=== PATIENT | female | born 1980 | race Caucasian/White ===

== ENCOUNTER 2019-02-12 18:01 | Emergency (ER) | payer BC ==
[2019-02-12 18:48] LABS: Urine Blood NEGATIVE (NEG); Urine Glucose NEGATIVE (NEG); Urine Protein NEGATIVE (NEG)
[2019-02-12] MEDS ORDERED: LORazepam 2 MG/ML VIAL ONE (19:24)
[2019-02-12 19:25] LABS: Absolute Lymphocytes (CBC) 2.8 K/uL (0.7-4.9); Basophils % 0.8 % (0-1.3); Hematocrit 41.8 % (36.0-45.0); Lymphocytes % 34.1 % (15.3-44.8); MPV 7.6 fL (7.6-11.3); RBC Red Blood Cell Count 4.53 M/uL (3.86-4.86)
--- NOTE | 2019-02-12 19:42 | RAD REPORT ---
EXAM DESCRIPTION: David Single View02/12/2019 7:22 pm CLINICAL HISTORY: Chest pain COMPARISON: 2010 FINDINGS: The lungs appear clear of acute infiltrate. The heart is normal size IMPRESSION: No acute abnormalities displayed
[2019-02-12 19:50] LABS: Barbiturates NEGATIVE (NEGATIVE); Benzodiazepines NEGATIVE (NEGATIVE); Cocaine NEGATIVE (NEGATIVE); METHAMPHETAM NEGATIVE (NEGATIVE); Methadone NEGATIVE (NEGATIVE); Opiates NEGATIVE (NEGATIVE); Phencyclidine NEGATIVE (NEGATIVE); THC Cannibis NEGATIVE (NEGATIVE)
[2019-02-12 19:57] LABS: ALT/SGPT 30 U/L (12-78); AST/SGOT 34 U/L (15-37); Albumin 4.1 g/dL (3.4-5.0); Alkaline Phosphatase 72 U/L (45-117); BUN Blood Urea Nitrogen 17 mg/dL (7-18); Bicarbonate 25 mmol/L (21-32); Bilirubin Direct 0.2 mg/dL (0-0.2); Bilirubin Total 0.6 mg/dL (0.2-1.0); Glucose Level 98 mg/dL (74-106); Magnesium 1.8 mg/dL (1.8-2.4); Potassium 3.2 mmol/L (3.5-5.1); Protein, Total 7.9 g/dL (6.4-8.2); Sodium Level 138 mmol/L (136-145); Troponin (Emerg Dept Use Only) < 0.02 ng/mL (0.0-0.045)
[2019-02-12] MEDS ORDERED: POTASSIUM 25 MEQ EFFERV TAB ONE (20:51)
--- NOTE | 2019-02-12 20:57 | EDPHYS ---
Physician Documentation [facility] Name: Ksenia Blanco Age: 38 yrs Sex: Female : 1980 Arrival Date: 02/12/2019 Time: 18:04 Bed 7 Private MD: ED Physician Lucas Antoine HPI: 02/12 18:35 This 38 yrs old Female presents to ER via Ambulatory with complaints of Chest cp Tightness, Dizziness. 18:35 The patient presents with lightheadedness. cp 18:35 Onset: The symptoms/episode began/occurred today, at 14:00. cp 18:35 Context: occurred at home, just prior to the episode the patient experienced no cp apparent symptoms. Associated signs and symptoms: Pertinent positives: chest pressure, tingling in hands, Pertinent negatives: abdominal pain, blurred vision, diaphoresis, focal weakness, headache, palpitations, shortness of breath, syncope, vomiting. Severity of symptoms: in the emergency department the symptoms are unchanged despite home interventions, took anxiety medication w/o relief. Patient's baseline: Neuro: alert and fully oriented, Motor: no deficits, Ambulation: walks without assistance, Speech: normal. 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 - Social history:: Smoking status: unknown. - Ebola Screening: : No symptoms or risks identified at this time. ROS: 18:40 Constitutional: Negative for body aches, chills, fever, poor PO intake. cp 18:40 Eyes: Negative for injury, pain, redness, and discharge. cp 18:40 ENT: Negative for drainage from ear(s), ear pain, sore throat, difficulty swallowing, difficulty handling secretions. 18:40 Cardiovascular: Positive for chest pressure, Negative for edema, palpitations. 18:40 Respiratory: Negative for cough, shortness of breath, wheezing. 18:40 Abdomen/GI: Negative for abdominal pain, nausea, vomiting, and diarrhea, black/tarry stool, rectal bleeding. 18:40 Back: Negative for pain at rest, pain with movement. 18:40 : Negative for urinary symptoms. 18:40 Neuro: Positive for dizziness, tingling, Negative for altered mental status, numbness, weakness. 18:40 All other systems are negative. Exam: 18:30 ECG was reviewed by the Attending Physician. cp 18:45 Constitutional: The patient appears in no acute distress, alert, awake, cp non-diaphoretic, non-toxic, well developed, well nourished, anxious. 18:45 Head/Face: Normocephalic, atraumatic. Eyes: Pupils equal round and reactive to light, cp extra-ocular motions intact. Lids and lashes normal. Conjunctiva and sclera are non-icteric and not injected. Cornea within normal limits. Periorbital areas with no swelling, redness, or edema. ENT: Nares patent. No nasal discharge, no septal abnormalities noted. Tympanic membranes are normal and external auditory canals are clear. Oropharynx with no redness, swelling, or masses, exudates, or evidence of obstruction, uvula midline. Mucous membranes moist. Neck: Trachea midline, no thyromegaly or masses palpated, and no cervical lymphadenopathy. Supple, full range of motion without nuchal rigidity, or vertebral point tenderness. No Meningismus. Chest/axilla: Normal chest wall appearance and motion. Nontender with no deformity. No lesions are appreciated. Cardiovascular: Regular rate and rhythm with a normal S1 and S2. No gallops, murmurs, or rubs. Normal PMI, no JVD. No pulse deficits. Respiratory: Lungs have equal breath sounds bilaterally, clear to auscultation and percussion. No rales, rhonchi or wheezes noted. No increased work of breathing, no retractions or nasal flaring. Abdomen/GI: Soft, non-tender, with normal bowel sounds. No distension or tympany. No guarding or rebound. No evidence of tenderness throughout. Neuro: Awake and alert, GCS 15, oriented to person, place, time, and situation. Cranial nerves II-XII grossly intact. Motor strength 5/5 in all extremities. Sensory grossly intact. Cerebellar exam normal. Normal gait. Vital Signs: 18:07 BP 131 / 85; Pulse 98; Resp 16; Temp 97.6; Pulse Ox 98% on R/A; Weight 77.11 kg; Height la1 5 ft. 4 in. (162.56 cm); 19:44 BP 123 / 73; Pulse 93; Resp 19; Pulse Ox 98% ; Pain 4/10; ao 20:13 BP 110 / 72; Pulse 94; Resp 18; Pulse Ox 98% ; ao 21:19 BP 103 / 73; Pulse 92; Resp 16; Temp 97.6; Pulse Ox 98% on R/A; ak1 18:07 Body Mass Index 29.18 (77.11 kg, 162.56 cm) la1 MDM: 18:27 Patient medically screened. cp 19:00 Differential diagnosis: cardiac arrhythmia, generalized weakness, hyperventilation, cp hypovolemia, idiopathic dizziness, , vertigo, anxiety. 20:55 Data reviewed: vital signs, nurses notes, lab test result(s), EKG, radiologic studies, cp plain films. 20:55 Test interpretation: by ED physician or midlevel provider: ECG, plain radiologic cp studies. Counseling: I had a detailed discussion with the patient and/or guardian regarding: the historical points, exam findings, and any diagnostic results supporting the discharge/admit diagnosis, lab results, radiology results, to return to the emergency department if symptoms worsen or persist or if there are any questions or concerns that arise at home. ED course: VSS. Patient reports she is feeling better. Will discharge to home for continued monitoring. 02/12 18:43 Order name: Urine Dipstick--Ancillary (enter results); Complete Time: 20:44 mb4 02/12 18:43 Order name: Urine --Ancillary (enter results); Complete Time: 20:44 mb4 02/12 19:00 Order name: UDS; Complete Time: 20:44 cp 02/12 19:00 Order name: Basic Metabolic Panel; Complete Time: 20:44 cp 02/12 20:44 Interpretation: Normal except: K 3.2; GFR 63. cp 02/12 19:00 Order name: CBC with Diff; Complete Time: 20:44 cp 02/12 19:00 Order name: LFT's; Complete Time: 20:44 cp 02/12 18:24 Order name: EKG; Complete Time: 18:25 cp 02/12 18:24 Order name: EKG - Nurse/Tech; Complete Time: 18:27 cp 02/12 18:26 Order name: Urine Dipstick-Ancillary (obtain specimen); Complete Time: 18:37 cp 02/12 19:00 Order name: Magnesium; Complete Time: 20:44 cp 02/12 19:00 Order name: Troponin (emerg Dept Use Only); Complete Time: 20:44 cp 02/12 19:00 Order name: XRAY Chest (1 view); Complete Time: 20:44 cp 02/12 18:26 Order name: Urine Test (obtain specimen); Complete Time: 18:37 cp 02/12 19:00 Order name: Cardiac monitoring; Complete Time: 19:35 cp 02/12 19:00 Order name: IV Saline Lock; Complete Time: 19:35 cp 02/12 19:00 Order name: Labs collected and sent; Complete Time: 19:35 cp 02/12 19:00 Order name: O2 Per Protocol; Complete Time: 19:35 cp 02/12 19:00 Order name: O2 Sat Monitoring; Complete Time: 19:35 cp EC:30 Rate is 93 beats/min. Rhythm is regular. IA interval is normal. QRS interval is normal. cp QT interval is normal. T waves are Flattened in lead aVL. Interpreted by me. Reviewed by me. Administered Medications: 19:34 Drug: Ativan 0.5 mg Route: IVP; Site: right antecubital; ao 21:20 Follow up: Response: No adverse reaction ak1 20:50 Drug: Potassium Effervescent Tablet 50 mEq Route: PO; ao 21:20 Follow up: Response: No adverse reaction ak1 Disposition: 02/12/19 20:56 Discharged to Home. Impression: Hypokalemia. - Condition is Stable. - Discharge Instructions: Potassium Content of Foods, Hypokalemia. - Prescriptions for Potassium Chloride 20 meq Oral Packet - take 1 packet by ORAL route once daily for 5 days 1 packet in 6 (six) ounces of water or juice; Take after meal; 5 packet. - Medication Reconciliation Form, Thank You Letter, Antibiotic Education, Prescription Opioid Use form. - Follow up: Private Physician; When: 1 - 2 days; Reason: Worsening of condition. - Problem is new. - Symptoms have improved. Signatures: Dispatcher [employer] EDMS Josue Harris RN RN la1 Kimberly Oakley RN RN ak1 Jett Deng PA PA cp Ortiz, Alex RN RN ao Corrections: (The following items were deleted from the chart) 21:21 20:56 02/12/2019 20:56 Discharged to Home. Impression: Hypokalemia. Condition is ak1 Stable. Forms are Medication Reconciliation Form, Thank You Letter, Antibiotic Education, Prescription Opioid Use. Follow up: Private Physician; When: 1 - 2 days; Reason: Worsening of condition. Problem is new. Symptoms have improved. cp
--- NOTE | 2019-02-12 20:57 | ER ---
Nurse's Notes [facility] Name: Ksenia Blanco Age: 38 yrs Sex: Female : 1980 Arrival Date: 02/12/2019 Time: 18:04 Bed 7 Private MD: Diagnosis: Hypokalemia Presentation: 02/12 18:05 Presenting complaint: Patient states: At about 1400 I started to feel dizzy. I have la1 been feeling bad since then and I tried to take my anxiety medicine but its not helping. Transition of care: patient was not received from another setting of care. Onset of symptoms was February 12, 2019. Risk Assessment: Do you want to hurt yourself or someone else? Patient reports no desire to harm self or others. Initial Sepsis Screen: Does the patient meet any 2 criteria? No. Patient's initial sepsis screen is negative. Does the patient have a suspected source of infection? No. Patient's initial sepsis screen is negative. Care prior to arrival: None. 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 - Social history:: Smoking status: unknown. - Ebola Screening: : No symptoms or risks identified at this time. Screenin:38 Abuse screen: Denies threats or abuse. Denies injuries from another. Nutritional ao screening: No deficits noted. Tuberculosis screening: No symptoms or risk factors identified. Fall Risk None identified. Assessment: 19:15 General: Appears in no apparent distress. comfortable, Behavior is calm, cooperative, ao appropriate for age. Pain: Complains of pain in chest Pain radiates to left arm Pain currently is 2 out of 10 on a pain scale. Pain began 1 hour ago. Neuro: Level of Consciousness is awake, alert, obeys commands, Oriented to person, place, time, situation, Appropriate for age Moves all extremities. Full function Speech is normal, Facial symmetry appears normal. Cardiovascular: Heart tones S1 S2 Capillary refill < 3 seconds is sluggish Patient's skin is warm and dry. Respiratory: Airway is patent Respiratory effort is even, unlabored, Respiratory pattern is regular, symmetrical. GI: Abdomen is non-distended. : Urine is clear. EENT: No signs and/or symptoms were reported regarding the EENT system. Derm: No signs and/or symptoms reported regarding the dermatologic system. Musculoskeletal: Circulation, motion, and sensation intact. Range of motion: intact in all extremities. 20:16 Reassessment: Patient appears in no apparent distress at this time. Patient and/or ao family updated on plan of care and expected duration. Pain level reassessed. Patient resting in bed with no SS of distress. Vital Signs: 18:07 BP 131 / 85; Pulse 98; Resp 16; Temp 97.6; Pulse Ox 98% on R/A; Weight 77.11 kg; Height la1 5 ft. 4 in. (162.56 cm); 19:44 BP 123 / 73; Pulse 93; Resp 19; Pulse Ox 98% ; Pain 4/10; ao 20:13 BP 110 / 72; Pulse 94; Resp 18; Pulse Ox 98% ; ao 21:19 BP 103 / 73; Pulse 92; Resp 16; Temp 97.6; Pulse Ox 98% on R/A; ak1 18:07 Body Mass Index 29.18 (77.11 kg, 162.56 cm) la1 ED Course: 18:04 Patient arrived in ED. mr 18:07 Triage completed. la1 18:07 Arm band placed on right wrist. la1 18:24 Jett Deng PA is PHCP. cp 18:24 Lucas Antoine MD is Attending Physician. cp 18:36 Urine collected: clean catch specimen, clear, bart colored, EKG done, by ED staff, jb1 reviewed by Lucas Antoine MD. 19:25 Inserted saline lock: 20 gauge in right antecubital area, using aseptic technique. ao Blood collected. Patient maintains SpO2 saturation greater than 95% on room air. 19:29 XRAY Chest (1 view) In Process Unspecified. EDMS 19:34 Michael Kirby, RN is Primary Nurse. ao 19:38 Patient has correct armband on for positive identification. cardiac monitor on. Pulse ao ox on. NIBP on. 21:20 IV discontinued, intact, bleeding controlled, No redness/swelling at site. Pressure ak1 dressing applied. 21:20 No provider procedures requiring assistance completed. ak1 Administered Medications: 19:34 Drug: Ativan 0.5 mg Route: IVP; Site: right antecubital; ao 21:20 Follow up: Response: No adverse reaction ak1 20:50 Drug: Potassium Effervescent Tablet 50 mEq Route: PO; ao 21:20 Follow up: Response: No adverse reaction ak1 Outcome: 20:56 Discharge ordered by MD. cp 21:20 Discharged to home ambulatory, with family. ak1 21:20 Condition: improved 21:20 Discharge instructions given to patient, Instructed on discharge instructions, follow up and referral plans. no drinking with medication, no driving heavy equipment, medication usage, Demonstrated understanding of instructions, follow-up care, medications, Prescriptions given X 1. 21:21 Patient left the ED. ak1 Signatures: Dispatcher [employer] EDMS Martín Mosley Mary mr Attema, Lee, RN RN Bart Collins RN RN stacy1 Jett Deng PA PA cp Michael Kirby, RN RN ao
--- NOTE | 2019-02-13 13:51 | EKG ---
Test Date: 2019-02-12 Test Time: 18:21:32 [employer]: [place] MEASUREMENT RESULTS: Intervals: Rate: 93 [place]: 120 QRSD: 84 QT: 338 QTc: 420 [place]: P: 36 [place]: 120 QRS: 65 T: 68 INTERPRETIVE STATEMENTS: Normal sinus rhythm Normal ECG Compared to ECG 07/18/2017 04:53:03 No significant changes Electronically Signed On 02-13-19 13:47:38 CDT by Abel Stallings
== END 2019-02-12 21:21 | disposition home or self-care (01) ==
LOC: ER 18:01
DX: E87.6 Hypokalemia (principal); F41.9 Anxiety disorder, unspecified; I10 Essential (primary) hypertension
CPT/HCPCS: 36415; 71045; 80048; 80076; 80307; 81003; 81025; 83735; 84484; 85025; 93005

== ENCOUNTER 2022-12-10 22:57 | Emergency (ER) | payer OTHER ==
--- OUTSIDE RECORDS SUMMARY | 2022-12-10 23:00 | XMS REPORT | Continuity of Care Document ---
:[address] [facility] t Address [address] [place] [address] Care Team Providers Name Role Phone Cherelle Colón Attending Clinician Unavailable Kei Chacon Admitting Clinician Unavailable Payers Payer Name Policy Type Policy Number Effective Date Expiration Date S ource Problems This patient has no known problems. Allergies, Adverse Reactions, Alerts Allergy Allergy Status Severity Reaction(s) Onset Inactive Treating Comm ents Source Name Type Date Date Clinician No Known DA Active [facility] All[facility]ie 6-20 [facility] s 00:00: d 00 [facility] Medications This patient has no known medications. Procedures This patient has no known procedures. Encounters Start End Encounter Admission Attending Care Care Encounter Source Date/Time Date/Time Type Type Clinicians Facility Department ID 2020-09-22 Inpatient MARILU TayPM DAYS [id number] [facility] 11:00:00 Cherelle Day [facility] Results Test Description Test Time Test Comments Results Result Comments Source SURG 2020-09-27 15:32:00 Test Item Value Reference Range Interpretation Comme nts SURG RUN (test DATE: 09/27/20 [facility] Luis Barrientos [facility] - LAB PAGE 1 RUN TIME: 1533 Specimen Inquiry RUN USER: code = INTERFACE SURG) PATIE NT: ALEXA DIXON LOC: SULEMALa U #: [id number] AGE/SX: 40/F ROOM: RE09/23/20[facility] DR: Devonte Colón : 84 BED: DIS: STATUS: [facility] [place] TLOC: SPEC #: [id number] RECD: STATUS: ADELINA STILES #: [id number] GRIFFIN: 09/23/[address]: Cherelle Colón MD ENTERED: 09/24/20 SP TYPE: SURG OTHR DR: Kei Chacon Jr, MD, Alberto J MDORDERED: SURG PATH LVL 5 COPIES TO: Kei Chacon Jr, MD [address] [facility] [address] [facility] [address] Cherelle Colón MD [address] [facility] [address] [place] [address] Ozzy Donnelly MD [address] [facility] [place] [address] HISTOLOGY: TISS UE ID BLK PCS DAWNA LEV PROCEDURE DISPOSITION ____ ___ ___ ___ UTERUS, NOS A 1 2 PROCEDURES: SURG PATH LVL 5 (09/24/20-1041) TISSUES: A. UTERUS, NOS - UTERUS, BILATERAL FALLOPIAN TUBES AND CERVIX CPT CODES CPT CODE(S): 43826 , , , , , , FINAL DIAGNOSIS Uterus, bilateral fallopian tubes, cervix, hysterectomy with bilateral salpingectomy: CHRONIC CERVICITIS SECRETORY PHASE ENDOMETRIUM ADENOMYOSIS LEIOMYOMAS BILAT ERAL FALLOPIAN TUBES WITH PARATUBAL CYSTS CONTINUED ON NEXT PAGE RUN DATE: 09/27/[address] [facility] - LAB PAGE 2 RUN TIME: 1533 Specimen Inquiry RUN USER: INTERFACE SPEC #: [id number] PATIENT: ZACKALEXA LEE #[id number] (Continued) ------ GROSS DESCRIPTION [place] jaren, bilateral fallopian tubes, cervix. Received in formalin is a 95.3-gram hysterectomy and b ilateral salpingectomy specimen and include a uterus with attached cervix (9.4 x 4.7 x 3.7 cm, 90.5 gms), a detached longer segment of fallopian tube with fimbriated end (3.7 x 1.2 x 1.0 cm), and a shorter detached segment of fallopian tube (3.2 x 1.2 x 1.0 cm). The serosal surfa ce is ramos-brown, generally smooth and glistening. The cervix, 3.2 x 2.6 x 3.0 cm, has a ramos exoc ervix and a linear os, 0.8 cm. The endometrial cavity measures 1.0 cm from cornu to cornu by 4.5 c m in length with a hemorrhagic endometrium, 0.2 cm. The myometrium is maximally 2.0 cm in thicknes s, areas with coarse trabeculations, and small cyst-like spaces filled with hemorrhagic flui d. There is an intramural nodule, 1.4 cm in greatest dimension with a homogeneous, dense, ramos, fib valorie cut surface with the whorled appearance and without hemorrhage or necrosis. Within the myom etrium is a cyst-like space, 1.4 x 0.7 x 0.5 cm, filled with non-viscous fluid. The longe r segment of fallopian tube has a patent lumen and is grossly unremarkable. The shorter se gment of fallopian tube is slightly tortuous, has a patent lumen, and is grossly unremarkable exce pt for an adjacent paratubal cyst, 0.4 cm. Section code: A1 Anterior cervix A2 Posterior cervix A 3-A4 Anterior endometrium/myometrium A5-A6 Posterior endometrium/myometrium A7 In tramural nodule A8-A9 Thickened coarse myometrium A10-A12 Cyst-like space in myometrium A13 Sero sa (Cul-de-sac) A14 Entire fimbria, longer fallopian tube A15 Longer fallopian tube A16 Entire fi mbria, shorter fallopian tube A17 [place] fallopian tube paratubal cyst Grossing performed at [facility], [address] [place] [address], [address], [place], [place] [address]. Laser Technician: Zachery Emerson M.D. MICROSCOPIC DESCRIPTION Uterus, bilateral fallopian tubes, cervix. Sections demo nstrate squamous endocervix and glandular endocervix. Chronic cervicitis is identified. Se ctions of the endometrium demonstrates secretory phase endometrium. The myometrium demonstrates areas of spindle cell nodules with no malignant or atypical features. Areas of endometrial glands and stroma are also identified in the myometrium. Sections of the fallopian tube demonstrate f imbriated and and cross sections of fallopian tube. Paratubal cysts are identified. CONTINUED ON NEXT PAGE RUN DATE: 09/27/20 [facility] - LAB PAGE 3 RUN TIME: 1533 Specimen Inquiry RUN USER: INTERFACE SPEC #: [facility]:[id number] PATIENT: ALEXA DIXON JIAN #[id number] (Continued) ------ Signed SIGNATURE ON FILE Theo Russell 09/27/20 153 2 END OF REPORT COVID 19 INHOUSE [id number] 12:37:00 Test Item Value Reference Range Interpretation Comments COVID 19 INHOUSE AG NEGATIVE Negative Per [facility] facturer, (test code = negative result s should [id number]) be treated aspr esumptive and, if inconsi stent with clinical signs andsymptoms or necessary for patient man agement, should betested with an alternative mol ecular assay. Negative resultsdo not preclude SA RS-CoV-2 infection and s hould not be usedas the s ole basis for patient man agement decisions. Nega tive results should be considered in t he context of apatient's r ecent exposures, hist ory, presence of cli nicalsigns and symptoms co nsistent with COVID-19. URINALYSIS [id number] 12:37:00 Test Item Value Reference Range Interpretation Comments UA GLUCOSE DIPSTICK (test NEGATIVE mg/dL NEG code = DGLUU) UA BILIRUBIN DIPSTICK (test NEGATIVE mg/dL NEG code = BILU) UA KETONE DIPSTICK (test NEGATIVE mg/dL NEG code = KETU) UA SPECIFIC GRAVITY (test <=1.005 SG 1.005-1.030 code = SGU) UA BLOOD DIPSTICK (test 1+ mg/DL NEG A code = DANE) UA PH DIPSTICK (test code = 7.0 pH UNITS 5.0-7.0 [place]) UA PROTEIN DIPSTICK (test NEGATIVE mg/dL NEG code = PROU) UA UROBILINIOGEN DIPSTICK 0.2 mg/dL <2.0 (test code = URO) UA NITRITE DIPSTICK (test NEGATIVE SCREEN NEG code = TONIO) UA LEUKOCYTE ESTERASE NEGATIVE Leuk/mcL NEGATIVE DIPSTICK (test code = LEUU) Urine Specimen Type: Clean CatchUR HCG [id number] 12:37:00 Test Item Value Reference Range Interpretation Comments UR HCG QUAL (test code = HCGQLU) NEGATIVE NEGATIVE Urine Specimen Type: Clean CatchURINALYSIS [id number] 12:18:00 Test Item Value Reference Range Interpretation Comments UA GLUCOSE DIPSTICK (test NEGATIVE mg/dL NEG code = DGLUU) UA BILIRUBIN DIPSTICK (test NEGATIVE mg/dL NEG code = BILU) UA KETONE DIPSTICK (test NEGATIVE mg/dL NEG code = KETU) UA SPECIFIC GRAVITY (test <=1.005 SG 1.005-1.030 code = SGU) UA BLOOD DIPSTICK (test 1+ mg/DL NEG A code = DANE) UA PH DIPSTICK (test code = 7.0 pH UNITS 5.0-7.0 [place]) UA PROTEIN DIPSTICK (test NEGATIVE mg/dL NEG code = PROU) UA UROBILINIOGEN DIPSTICK 0.2 mg/dL <2.0 (test code = URO) UA NITRITE DIPSTICK (test NEGATIVE SCREEN NEG code = TONIO) UA LEUKOCYTE ESTERASE NEGATIVE Leuk/mcL NEGATIVE DIPSTICK (test code = LEUU) Urine Specimen Type: Clean CatchUR HCG [id number] 12:18:00 Test Item Value Reference Range Interpretation Comments UR HCG QUAL (test code = HCGQLU) NEGATIVE Urine Specimen Type: Clean CatchCBC W/AUTO [id number] 12:10:00 Test Item Value Reference Range Interpretation Comments WHITE BLOOD CELL (test code = 5.7 K/mm3 3.5-11.0 N WBC) RED BLOOD CELL (test code = 4.35 M/mm3 4.70-6.10 L RBC) HEMOGLOBIN (test code = HGB) 14.0 G/DL 10.4-14.9 N HEMATOCRIT (test code = HCT) 41.6 % 31.5-44.1 N MEAN CELL VOLUME (test code = 95.6 Fl 84.5-98.6 N MCV) MEAN CELL HGB (test code = MCH) 32.2 pg 27.0-34.2 N MEAN CELL HGB CONCETRATION 33.7 G/DL 31.5-34.0 N (test code = MCHC) RED CELL DISTRIBUTION WIDTH 12.0 SD 11.5-14.5 N (test code = RDW) PLATELET COUNT (test code = 263 K/mm3 150-450 N PLT) MEAN PLATELET VOLUME (test code 10.00 fL 7.0-10.5 N = MPV) NEUTROPHIL % (test code = NT%) 53.4 % 40-76 N IMMATURE GRANULOCYTE % (test 0.4 % 0.0-5.0 N code = IG%) LYMPHOCYTE % (test code = LY%) 35.6 % 20.5-51.1 N MONOCYTE % (test code = MO%) 8.1 % 1.7-9.3 N EOSINOPHIL % (test code = EO%) 1.4 % 0.0-6.0 N BASOPHIL % (test code = BA%) 1.1 % 0.0-2.0 N NUCLEATED RBC % (test code = 0.0 /100WBC% 0.0-1.0 N NRBC%) NEUTROPHIL # (test code = NT#) 3.0 K/mm3 1.8-7.6 N IMMATURE GRANULOCYTE # (test 0.02 x10 3/uL 0.00-0.03 N code = IG#) LYMPHOCYTE # (test code = LY#) 2.0 K/mm3 0.6-3.2 N MONOCYTE # (test code = MO#) 0.5 K/mm3 0.3-1.1 N EOSINOPHIL # (test code = EO#) 0.1 K/mm3 0.0-0.4 N BASOPHIL # (test code = BA#) 0.1 K/mm3 0.0-0.1 N NUCLEATED RBC # (test code = 0.0 K/mm3 0.0-0.1 N NRBC#) MANUAL DIFF REQUIRED (test code NO DIFF/SCN CRITERIA = MDIFF) Notes Date/Time Note Provider Source 2020-09-24 23:38:00-00:00 [id number] [address] PATIENT NAME: ALEXA DIXON ADMIT DATE: 09/23 ACCOUNT NO: [id number] ROOM NO: AGE: 40 REPORT TYPE: OPERATIVE REPORT SEX: F ADMITTING PHYSICIAN: ATTENDING PHYSICIAN: Cherelle Colón MD OPERATION DATE: 09/23/2020 PREOPERATIVE DIAGNOSES: Irre gular bleeding and recurrent bleeding after 7 years post-ablation, pelvic pain and most likely with an isthmocele and/or adenomyosis. POSTOPERATIVE DIAGNOSES:. Irregular bleeding and recurrent bleeding after 7 years post-ablation, pelvic pain and most likely with an isthmocele and/or adenomyosis, bladder adhesions, omental adhesions as well, and bilateral hydro or hematosalpinges. PROCEDURES PERFORMED: Total laparoscopic hysterectomy, bilateral salpingectomy, lysis of bladder adhesions and omental adhesions , which took about 50% of the time for the procedure. Then, total laparoscopic hysterectomy, bilateral salpingectomy, and cystoscopy. SURGEON: Cherelle Colón MD FUR DRESSER: Lia Hairston CFA. ANESTHESIA: General endotracheal. ESTIMATED BLOOD LOSS: 50 mL. SPECIMENS: Uterus and tubes. COMPLICATIONS: No complications. DRAINS: None. CONDITION: Stable. FINDINGS: Significant amount of omental adhesion s down to the anterior abdominal wall in the midline and the la teral aspect. Then, significant amount of bladder adhesions. Uterus is mostly unremarkable excepting an ablated cavity and difficult to insert the manipulator and then in the anterior wall, uninterrupted area near the lower part of the sc ar as well as slight loss of support at the vaginal apex. BRIEF HISTORY AND PHYSICAL: The patient is a 40- year-old 2, para 2, 2 C-sections, had menorrhagia age 33 and u nderwent an ablation and a tubal. This caused amenorrhea and very tolerable minimal john n for about the same duration PATIENT NAME: ALEXA DIXON [id number] and now she has recurrent bleeding, more signifi cant pelvic pain. She was evaluated in the office and on the pelvic exam, tenderness was palpated; however, on transvaginal ultrasound, there was a n area suspicious for adenomyosis and an isthmocele. Discussed about the different options with this patient including medical tr eatment, diagnostic laparoscopy with endometriosis, excision of same. No suspicion of endometriosis. The scar of the pelvic pain is mostly central, then opti ons of a laparoscopic hysterectomy and bilateral salpingectomy. Also, along with endome triosis excision, the isthmocele could be resected as well if she want ed to preserve her uterus; however, the patient does not desire any fertili ty in the future. The tubes have been interrupted for 7 years, so she wanted to proceed with hysterectomy for relief of her pain as well as recurring. After informed consent was verified, all risks i ncluding bleeding, infection, injury to the bowel, bladder, and ureters, espec ially given the nature of her scars were discussed and the potential for rabia ter postop if there was a bladder injury and cystoscopy. All were discussed with the patient and she was taken to the OR. Her prescriptions were sent to the pharmacy. Her mom was present at her b edside and all the questions were answered to their satisfaction. PROCEDURE IN DETAIL: The patient was antoni en to the OR, placed in supine fashion on the operating table. General anesthesia was g iven. Arms tucked by the side using SLED and placed in oscar jovany lithotomy using Fran stirrups. Entire abdomen, vulva, vagina, and perineum were prepped and dale ped in sterile fashion. Perrin placed to drain the bladder. This was attached f or retrograde filling to the bag of Ringer's lactate that was emptied to 700 mL. Large VCare was introduced into the uterus and fixed in place. This area wa s draped. 1 cm infraumbilical incision made with a scalpel using the open lapa roscopy technique. Fascia was incised, tagged with 0 Vicryl sutures. Peritoneu m entered sharply. S retractors placed, Nahtalia introduced. Si te of entry checked, unremarkable. The patient was placed in T-kulwant and 5 mm right lowe r quadrant port was placed as there were omental adhesions right below the level of the umbilical scar all the way down to the suprapubic area. So once the 5 p ort on the right side was placed, another port was placed in the left lowe r quadrant, avoiding the adhesions and the 5 mm LigaSure was used to come around and take the adhesions down, making windows and usi ng push spread technique with cold scissors and with the LigaSure. Once all this was taken down, ther e was good hemostasis. A 10 port in the suprapubic area was placed w ithout any problems. Then, there was a significant amount of scar tissue noted on the a nterior abdominal wall fascia and this was encountered and the trocar was depl oyed without any problems. Then, once the patient was p laced in T-kulwant, there were significant adhesions to the bladder as well a liver. At this point, denis kathleen, the VCare cup was very easily visible on the anteri or and posterior aspects. There was a slight window as noted in findings. LigaSure was used to take down the mesos alpinx and the distal tube on the left side. Uteroovarian ligament, mesosalpinx, round ligament taken down. Anterior broad ligament opened up and careful dis section of the left paravesical space. Then, the anterior vaginal wall was iden tified and then the bladder peritoneum was incised with the monopolar and then pushed d own inferiorly to open the anterior vaginal wall. The posterior peritoneum taken down to the left uterosacral. Then, the vessels were skeletonized . There was significant scar PATIENT NAME: ALEXA DIXON [id number] tissue, which was also taken down to expose the vessels. Once this was done, similar dissection was performed on the opposite side and once everything was exposed on the vessels, then the bladder flap was dissected inferiorly at least another 1.5 to 2 cm. Once this was done adequate ly with the help of the monopolar to enter the vesicovaginal space and t hen retract the bladder down, then a window was made medial to the right side vessels. Then, bipolar Kleppinger tip was used to cauterize the vessels , taken down with the help of the LigaSure. Then, cardinal ligaments were take n down in a similar fashion. On the opposite side, similar dissection was performed on the anterior vaginal wall vessel. Then, the uterine artery and vein a nd then the vessels ____ and the cardinal ligaments were taken down as well. Circumferential colpotomy was performed incidentally as I as taking down the l eft uterosacral, there was a colpotomy already incidentally made as lining of the vagina was very thin, no hair. Circumferential colpotomy was performed wi th the monopolar hook blade. The specimen was detached and pulled out through the vagina. Once this was retrieved, the left distal tube, right distal tube and uterus with proximal bilateral tubes was handed off for perm anent pathology. One of the tubes from the proximal end had broken out. Ther e was evidence of bilateral hydrosalpinges or hematosalpinges. Thorough irrigation and suction were performed. Cauterization was performed along the cuff to secure hemostasis to extremely high satisfactory level. No electrical, mechanical or thermal injury to the ureters. The cuff was closed with two simple angle sutures, [address]-1 and then 3 [id number] sutures were placed in the center reattaching th e connective tissue of the anterior and posterior boland. Thorough irrigation and suction was performed. T rocars were removed under direct vision. The appendix appeared to be daniela l. No evidence of endometriosis. Cystoscopy was performed with 30-degree lens nor mal saline for distention and there was excellent jets of urine from t he ureters. No evidence of any bladder injury. Bladder was then drained. The vagina was cleaned up and drained as well. After changing the gloves, the fascia at t he umbilicus closed with tag sutures tied to each other. Suprapubic fascial incision closed with the help of a simple 0 Vicryl suture. All skin incisions wit h interrupted 4-0 Vicryl sutures. Steri-Strips were placed. Instrument, n eedle, and sponge counts were done and were correct at the end of case. The vaibhav cosby was recovered from anesthesia and taken to PACU in stable condition. 50% of this case was spent on bladder and omental adhesions. She has a 1-week followup with me. Dictated By: Cherelle Colón MD WT: OP:LJOSE/NADJA/SCAR Conf#: [id number]/DID#: [id number] Authenticated by Cherelle Colón MD On 10/21 01:22:58 PM PATIENT NAME: ALEXA DIXON [id number] at 1323 PATIENT NAME: ZACKALEXA [id number] 15:20:00-00:00 HCAPM [facility] ([facility]) Brief Op Note REPORT#:[id number] REPORT STATUS: Signed DATE:09/23/20 TIME:1520 PATIENT: ALEXA DIXON UNIT #: [id number] ROOM/BED: : 82 AGE: 40 SEX: F ATTEND: Sa leti Colón MD ADM AUTHOR: Cherelle Colón MD * ALL edits or amendments must be made on the [employer]/computer document * Op/Inv Proc Note - Brief Pre-procedure diagnosis: Irregular periods AUB-O/A, pelvic pain Post-procedure diagnosis: same as pre procedure dx, bilateral hydrosalpinges Procedures performed: TLH BS AMARJIT cysto Primary Surgeon: gema Swimming Coach Or Instructor(s): Annetta MAE Anesthesia: general anesthesia Findings: no endo, bilateral hydrosalpinges, omentum ant a bd wall scar Complications: none Estimated blood loss in ml's: none Specimens removed/altered: u terus, tubes, distal segments seperate, prox dilated parts with uterus Drain(s): None Fluids: 1200 Urine output: >50 Approach: laparoscopic Wound class: clean-contaminated Disposition: plan to D/C home at 1530 RPT #: [id number] END OF REPORT
[2022-12-11] MEDS ORDERED: LORazepam 2 MG/ML VIAL ONE (00:04)
[2022-12-11 00:11] LABS: Hematocrit 45.1 % (36.0-45.0); Lymphocytes % 43.3 % (15.3-44.8); MCV 92.8 fL (80-100); MPV 7.3 fL (7.6-11.3); RBC Red Blood Cell Count 4.86 M/uL (3.86-4.86)
[2022-12-11 00:14] LABS: Protime INR 0.9
[2022-12-11 00:26] LABS: Specific Gravity < 1.005 (1.005-1.030); Urine Bacteria <20 /HPF (<20); Urine Bilirubin NEGATIVE (Negative); Urine Blood Negative (Negative); Urine Clarity Turbid (Clear); Urine Color Colorless (Yellow); Urine Glucose NEGATIVE (Negative); Urine Mucus Slight /HPF (None Seen); Urine Protein NEGATIVE (Negative); Urine RBC <5 /HPF (None Seen); Urine Urobilinogen Normal (Normal); Urine pH 6.5 (5.0-7.0)
[2022-12-11 00:27] LABS: Potassium 3.1 mEq/L (3.5-5.1); Troponin High Sensitivity 4.8 pg/mL (<58.9)
[2022-12-11 00:30] LABS: Barbiturates NEGATIVE (NEGATIVE); Benzodiazepines NEGATIVE (NEGATIVE); Cocaine NEGATIVE (NEGATIVE); METHAMPHETAM NEGATIVE (NEGATIVE); Methadone NEGATIVE (NEGATIVE); Opiates NEGATIVE (NEGATIVE); Phencyclidine NEGATIVE (NEGATIVE); THC Cannibis NEGATIVE (NEGATIVE)
[2022-12-11] MEDS ORDERED: NA CHLORIDE 0.9% 1,000 ML ONE (00:58)
[2022-12-11] MEDS ORDERED: POTASSIUM 25 MEQ EFFERV TAB ONE (00:58)
--- NOTE | 2022-12-11 02:32 | EDPHYS ---
Physician Documentation [facility] Name: Ksenia Blanco Age: 42 yrs Sex: Female : 1980 Arrival Date: 12/10/2022 Time: 22:57 Bed 14 Private MD: ED Physician Linden Hines HPI: 12/10 23:30 This 42 yrs old Female presents to ER via Ambulatory with complaints of Anxiety, cp Numbness Of Lips, Cold on L. Side. 23:30 The patient or guardian complains of numbness, "feels cold". The complaints affect the cp left arm and left hand. Onset: The symptoms/episode began/occurred today, while visiting family in ED. The patient or guardian reports chest pain that is located primarily in the left side of chest, off and on for past several days. 23:30 Associated signs and symptoms: Pertinent positives: numbness, of the lips and left side cp of face, Pertinent negatives: weakness. 23:30 Patient admits to increased stress, dealing with health issues of several family cp members. HX of anxiety. Symptoms started while in ED tonight with twin sister who is also a patient. 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 - Social history:: Smoking status: Reported history of juuling and/or vaping. ROS: 23:35 Constitutional: Negative for body aches, chills, fever, poor PO intake. cp 23:35 Cardiovascular: Positive for chest pain, Negative for edema. cp 23:35 Respiratory: Negative for cough, shortness of breath, wheezing. 23:35 Abdomen/GI: Negative for abdominal pain, vomiting, diarrhea, constipation. 23:35 Neuro: Positive for headache, numbness, tingling, of the left arm and left side of face, Negative for altered mental status. 23:35 Psych: Positive for anxiety. 23:35 All other systems are negative. cp Exam: 23:40 Constitutional: The patient appears in no acute distress, alert, awake, cp non-diaphoretic, non-toxic, well developed, well nourished, anxious. 23:40 Head/Face: Normocephalic, atraumatic. cp 23:40 Eyes: Periorbital structures: appear normal, Pupils: equal, round, and reactive to light and accomodation, Extraocular movements: intact throughout, Conjunctiva: normal, no exudate, no injection, Lids and lashes: appear normal, bilaterally. 23:40 ENT: External ear(s): are unremarkable, Nose: is normal, Mouth: Lips: moist, Oral mucosa: pink and intact, moist, Posterior pharynx: is normal, airway is patent, no erythema, no exudate. 23:40 Chest/axilla: Inspection: normal. 23:40 Cardiovascular: Rate: normal, Rhythm: regular. 23:40 Respiratory: the patient does not display signs of respiratory distress, Respirations: normal, no use of accessory muscles, no retractions, labored breathing, is not present, Breath sounds: are clear throughout, no decreased breath sounds, no stridor, no wheezing. 23:40 Abdomen/GI: Inspection: abdomen appears normal. 23:40 Neuro: Orientation: to person, place \\T\\ time. Mentation: is normal, Cerebellar function: is grossly normal, Motor: moves all fours, strength is normal, Sensation: tingling, that is mild, of the left arm and left side of face, Gait: is steady, at a normal pace, without difficulty. 23:57 ECG was reviewed by the Attending Physician. 12/11 02:22 EKG reviewed at 2350 reveals sinus tachycardia at 107, otherwise normal EKG. No acute sp4 Vital Signs: 12/10 23:45 BP 160 / 100; Pulse 111; Resp 18; Pulse Ox 100% ; Weight 77.11 kg; Height 5 ft. 4 in. ; vc1 12/11 00:06 BP 149 / 99 RA; vc1 00:06 BP 149 / 96 LA; vc1 01:10 BP 125 / 83; Pulse 95; Resp 16; Pulse Ox 99% ; vc1 02:00 BP 113 / 81; Pulse 87; Resp 17; Pulse Ox 98% on R/A; vc1 12/10 23:45 Body Mass Index 29.18 (77.11 kg, 162.56 cm) vc1 MDM: 12/10 23:36 Patient medically screened. 12/11 02:22 Differential Diagnosis altered mental status, Anxiety attack, panic attack, anxiety sp4 disorder. Data reviewed: vital signs, nurses notes, lab test result(s), EKG, radiologic studies, CT scan. Consideration of Admission/Observation Escalation of care including admission/observation considered. ED course: There is mildly depressed potassium 3.1, normal CBC, normal magnesium, D-dimer was found elevated 1840. ED course: Urine drug screen revealed no signs of recreational substances, troponin negative test negative. CT head revealed no acute intracranial abnormality. CT angiography with IV contrast revealed no evidence of pulmonary embolism, left thyroid nodule, recommend thyroid ultrasound for follow-up. No sign of acute emergent medical problem. Patient will be discharged home. . 12/10 23:24 Order name: Basic Metabolic Panel; Complete Time: 00:34 12/11 00:35 Interpretation: Normal except: K 3.1; NA 134. 12/10 23:24 Order name: CBC with Diff; Complete Time: 00:34 12/11 00:35 Interpretation: Normal except: HGB 15.5; HCT 45.1; MPV 7.3. 12/10 23:24 Order name: D-Dimer; Complete Time: 00:34 12/11 00:38 Interpretation: Abnormal: D-DIMER 1840. 12/10 23:24 Order name: Magnesium; Complete Time: 00:34 12/10 23:24 Order name: PT-INR; Complete Time: 00:34 12/10 23:24 Order name: Troponin HS; Complete Time: 00:34 12/11 00:45 Interpretation: Reviewed. 12/10 23:24 Order name: UDS; Complete Time: 00:34 12/10 23:24 Order name: Urinalysis W/Microscopic; Complete Time: 00:34 12/11 00:27 Order name: Test Serum, Qualitat; Complete Time: 02:20 EDMS 12/10 23:24 Order name: XRAY Chest (1 view) 12/10 23:24 Order name: CT Head Brain wo Cont 12/11 00:37 Order name: CT Chest For PE Angio 12/10 23:24 Order name: EKG; Complete Time: 23:25 06/18 23:24 Order name: Cardiac monitoring; Complete Time: 23:46 cp 18 23:24 Order name: EKG - Nurse/Tech; Complete Time: 23:46 cp 18 23:24 Order name: IV Saline Lock; Complete Time: 23:46 cp 18 23:24 Order name: Labs collected and sent; Complete Time: 23:46 cp 18 23:24 Order name: O2 Per Protocol; Complete Time: 23:46 cp 18 23:24 Order name: O2 Sat Monitoring; Complete Time: 23:46 cp 18 23:24 Order name: Blood Pressure Recheck: bilateral upper extremity; Complete Time: 00:08 cp EC/18 23:57 Rate is 107 beats/min. Rhythm is regular. WV interval is normal. QRS interval is cp normal. QT interval is normal. Interpreted by me. Reviewed by me. Administered Medications: 12/11 00:06 Drug: Ativan IVP 1 mg Route: IVP; Site: right antecubital; vc1 02:41 Follow up: Response: No adverse reaction; Marked relief of symptoms vc1 01:02 Drug: NS 0.9% IV 1000 ml Route: IV; Rate: 1 bolus; Site: right antecubital; vc1 01:02 Drug: Potassium PO Effervescent Tablet 50 mEq Route: PO; vc1 02:41 Follow up: Response: No adverse reaction; Marked relief of symptoms vc1 Disposition: 07:29 Co-signature as Attending Physician, Linden Hines MD I agree with the assessment sp4 and plan of care. I reviewed the patient's care provided by Advanced Practice Provider \\T\\ agree w/ the diagnosis \\T\\ care plan. I personally saw the pt \\T\\ performed a substantive portion of the visit, incldng all aspects of the (History/Exam/Medical Decision Making). Disposition Summary: 12/11/22 02:32 Discharge Ordered Location: Home sp4 Problem: new sp4 Symptoms: have improved sp4 Condition: Stable sp4 Diagnosis - Anxiety disorder, unspecified sp4 - Acute anxiety attack. sp4 Followup: sp4 - With: Private Physician - When: As needed - Reason: Discharge Instructions: - Discharge Summary Sheet sp4 - Panic Attack sp4 Prescriptions: - Valium 5 mg Oral Tablet - take 1 tablet by ORAL route every 12 hours As needed PRN anxiety; 20 tablet; sp4 Refills: 0, Product Selection Permitted Signatures: Dispatcher [employer] EDMS Jett Deng PA PA cp Calcote, Vanessa RN RN vc1 Linden Hines MD MD sp4 Corrections: (The following items were deleted from the chart) 00:27 12/10 23:24 Test, Urine+[id number].LAB.BRZ ordered. EDMS EDMS
--- NOTE | 2022-12-11 02:32 | ER ---
Nurse's Notes [facility] [place], [place] Name: Ksenia Blanco Age: 42 yrs Sex: Female : 1980 Arrival Date: 12/10/2022 Time: 22:57 Bed 14 Private MD: Diagnosis: Anxiety disorder, unspecified;Acute anxiety attack. Presentation: 12/10 23:45 Chief complaint: Patient states: "I was here earlier with my twin and when it was time vc1 to go I was scared to leave. I've been under a ot of stress and have been having anxiety attacks but now my left arm is cold and the left side of my face and lips are achy, heavy, and cold.". Coronavirus screen: Vaccine status: Patient reports being unvaccinated. Client denies travel out of the [place] in the last 14 days. At this time, the client does not indicate any symptoms associated with coronavirus-19. Ebola Screen: Patient negative for fever greater than or equal to 101.5 degrees Fahrenheit, and additional compatible Ebola Virus Disease symptoms Patient denies exposure to infectious person. Patient denies travel to an Ebola-affected area in the 21 days before illness onset. No symptoms or risks identified at this time. Initial Sepsis Screen: Does the patient meet any 2 criteria? HR > 90 bpm. No. Patient's initial sepsis screen is negative. Does the patient have a suspected source of infection? No. Patient's initial sepsis screen is negative. Risk Assessment: Do you want to hurt yourself or someone else? Patient reports no desire to harm self or others. Onset of symptoms was December 10, 2022. 23:45 Method Of Arrival: Ambulatory vc1 23:45 Acuity: LAURIE 4 vc1 Triage Assessment: 23:49 General: Appears in no apparent distress. uncomfortable, Behavior is cooperative, vc1 anxious. Pain: Complains of pain in left cheek, mouth and left jaw Pain does not radiate. Pain currently is 3 out of 10 on a pain scale. Quality of pain is described as aching, heavy, cold. EENT: No deficits noted. No signs and/or symptoms were reported regarding the EENT system. Neuro: Level of Consciousness is awake, alert, obeys commands, Oriented to person, place, time, situation, Appropriate for age Speech is normal, Facial symmetry appears normal. Cardiovascular: No deficits noted. Respiratory: Airway is patent Respiratory effort is even, unlabored, Respiratory pattern is regular, symmetrical. GI: No deficits noted. No signs and/or symptoms were reported involving the gastrointestinal system. : No deficits noted. No signs and/or symptoms were reported regarding the genitourinary system. Derm: No deficits noted. No signs and/or symptoms reported regarding the dermatologic system. Musculoskeletal: No deficits noted. No signs and/or symptoms reported regarding the musculoskeletal system. 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 - Social history:: Smoking status: Reported history of juuling and/or vaping. Screenin:[facility] ED Fall Risk Assessment (Adult) History of falling in the last 3 months, vc1 including since admission No falls in past 3 months (0 pts) Confusion or Disorientation No (0 pts) Intoxicated or Sedated No (0 pts) Impaired Gait No (0 pts) Mobility Assist Device Used No (0 pt) Altered Elimination No (0 pt) Score/Fall Risk Level 0 - 2 = Low Risk Oriented to surroundings, Maintained a safe environment, Educated pt \\T\\ family on fall prevention, incl call for assistance when getting out of bed. Abuse screen: Denies threats or abuse. Nutritional screening: No deficits noted. Tuberculosis screening: No symptoms or risk factors identified. Assessment: 12/11 01:11 Reassessment: No changes from previously documented assessment. Patient and/or family vc1 updated on plan of care and expected duration. Pain level reassessed. Patient states feeling better. Patient states symptoms have improved. 02:08 Reassessment: No changes from previously documented assessment. Patient and/or family vc1 updated on plan of care and expected duration. Pain level reassessed. Patient is alert, oriented x 3, equal unlabored respirations, skin warm/dry/pink. 02:42 Reassessment: Patient and/or family updated on plan of care and expected duration. Pain vc1 level reassessed. Patient is alert, oriented x 3, equal unlabored respirations, skin warm/dry/pink. Patient denies pain at this time. Patient states feeling better. Patient states symptoms have improved. General: Behavior is calm, cooperative, appropriate for age. Vital Signs: 12/10 23:45 BP 160 / 100; Pulse 111; Resp 18; Pulse Ox 100% ; Weight 77.11 kg; Height 5 ft. 4 in. ; vc1 12/11 00:06 BP 149 / 99 RA; vc1 00:06 BP 149 / 96 LA; vc1 01:10 BP 125 / 83; Pulse 95; Resp 16; Pulse Ox 99% ; vc1 02:00 BP 113 / 81; Pulse 87; Resp 17; Pulse Ox 98% on R/A; vc1 12/10 23:45 Body Mass Index 29.18 (77.11 kg, 162.56 cm) vc1 ED Course: 12/10 23:01 Patient arrived in ED. ja2 23:09 Jett Deng PA is PHCP. cp 23:09 Linden Hines MD is Attending Physician. cp 23:43 XRAY Chest (1 view) In Process Unspecified. EDMS 23:46 Basic Metabolic Panel Sent. bc6 23:46 CBC with Diff Sent. bc6 23:46 D-Dimer Sent. bc6 23:46 Magnesium Sent. bc6 23:46 PT-INR Sent. bc6 23:46 Troponin HS Sent. bc6 23:46 Inserted saline lock: 20 gauge in right antecubital area, using aseptic technique. bc6 23:48 Triage completed. vc1 23:49 Arm band placed on right wrist. vc1 23:51 Patient has correct armband on for positive identification. Bed in low position. Call vc1 light in reach. Client placed on continuous cardiac and pulse oximetry monitoring. NIBP monitoring applied. 23:52 Christina Harper, RN is Primary Nurse. vc1 12/11 00:35 Test Serum, Qualitat Sent. as7 01:33 CT Head Brain wo Cont In Process Unspecified. EDMS 01:34 CT Chest For PE Angio In Process Unspecified. EDMS 02:42 No provider procedures requiring assistance completed. IV discontinued, intact, vc1 bleeding controlled, No redness/swelling at site. Pressure dressing applied. Administered Medications: 00:06 Drug: Ativan IVP 1 mg Route: IVP; Site: right antecubital; vc1 02:41 Follow up: Response: No adverse reaction; Marked relief of symptoms vc1 01:02 Drug: NS 0.9% IV 1000 ml Route: IV; Rate: 1 bolus; Site: right antecubital; vc1 01:02 Drug: Potassium PO Effervescent Tablet 50 mEq Route: PO; vc1 02:41 Follow up: Response: No adverse reaction; Marked relief of symptoms vc1 Medication: 12/10 23:51 VIS not applicable for this client. vc1 Outcome: 12/11 02:32 Discharge ordered by . sp4 02:42 Discharged to home ambulatory. vc1 02:42 Condition: good 02:42 Discharge instructions given to patient, Instructed on discharge instructions, follow up and referral plans. medication usage, Demonstrated understanding of instructions, follow-up care, medications, Prescriptions given X 1. 02:42 Patient left the ED. vc1 Signatures: Dispatcher [employer] EDMS Jett Deng PA PA cp Alexander, Jessica ja2 Christina Harper RN RN vc1 Ernestine Gomes as7 Екатерина Kee bc6 Linden Hines MD MD sp4
[2022-12-11 03:14] VITALS: BP 113/81; O2SAT 98
--- NOTE | 2022-12-11 11:51 | RAD REPORT ---
EXAM DESCRIPTION: CT - Chest For Pe Angio - 12/11/2022 6:17 am CLINICAL HISTORY: The patient is 42 years old and is Female; CHEST PAIN TECHNIQUE: Axial computed tomographic angiography images of the chest with intravenous contrast. S agittal and coronal reformatted images were created and reviewed. This CT exam was performed using one or more of the following dose reduction techniques: automated exposure control, adjustment of t he mA and/or kV according to patient size, and/or use of iterative reconstruction technique. MIP reconstructed images were created and reviewed. COMPARISON: No relevant prior studies available. FINDINGS: PULMONARY ARTERIES: There are no obvious filling defects identified within the pulmonary arteries to suggest pulmonary embolism. AORTA: No acute findings. No thoracic aortic aneurysm. LUNGS: The lungs are well-inflated and clear. No lobar consolidation or mass. PLEURAL SPACE: Unremarkable. No significant effusion. No pneumothorax. HEART: Unremarkable. No cardiomegaly. No significant pericardial effusion. No evidence of R V dysfunction. THYROID: A heterogeneous 1.6 x 1.2 cm nodule within the left lobe of thyroid demonstrating calcif ications. BONES/JOINTS: No acute fracture. No dislocation. SOFT TISSUES: Unremarkable. LYMPH NODES: Unremarkable. No enlarged lymph nodes. IMPRESSION: 1. No evidence of pulmonary embolism. 2. Left thyroid nodule. Recommend thyroid ultrasound follow-up. Electronically signed by: Didi Cesar MD 12/11/2022 2:11 AM CDT Due to temporary technical issues with the PACS/Fluency reporting system, reports are being signed by the in house radiologist without review as a courtesy to ensure prompt reporting. The interpreting r adiologist is fully responsible for the content of the report.
--- NOTE | 2022-12-11 12:39 | RAD REPORT ---
EXAM DESCRIPTION: CT - Head Brain Wo Cont - 12/11/2022 6:17 am CLINICAL HISTORY: HEADACHE TECHNIQUE: Axial computed tomography images of the head/brain without intravenous contrast. Sagitt al and coronal reformatted images were created and reviewed. This CT exam was performed using one o r more of the following dose reduction techniques: automated exposure control, adjustment of the mA and/or kV according to patient size, and/or use of iterative reconstruction technique. COMPARISON: No relevant prior studies available. FINDINGS: Brain: Unremarkable. No hemorrhage. No significant white matter disease. No edema. Ventricles: Unremarkable. No ventriculomegaly. Bones/joints: Unremarkable. No acute fracture. Soft tissues: Unremarkable. Sinuses: Unremarkable as visualized. No acute sinusitis. Mastoid air cells: Unremarkable as visualized. No mastoid effusion. IMPRESSION: No acute intracranial or extra-axial abnormality. Electronically signed by: Lyndon Stone MD 12/11/2022 2:08 AM CDT Due to temporary technical issues with the PACS/Fluency reporting system, reports are being signed by the in house radiologist without review as a courtesy to ensure prompt reporting. The interpreting r adiologist is fully responsible for the content of the report.
--- NOTE | 2022-12-11 12:45 | RAD REPORT ---
EXAM DESCRIPTION: RAD - Chest Single View - 12/10/2022 11:41 pm CLINICAL HISTORY: The patient is 42 years old and is Female; CHEST PAIN TECHNIQUE: Frontal view of the chest. COMPARISON: No relevant prior studies available. FINDINGS: Lungs: Unremarkable. No consolidation. Pleural space: Unremarkable. No pneumothorax. Heart: Unremarkable. Mediastinum: Unremarkable. Bones/joints: Unremarkable. IMPRESSION: No acute findings in the chest. Electronically signed by: Kumar Tapia MD 12/11/2022 2:29 AM CDT Due to temporary technical issues with the PACS/Fluency reporting system, reports are being signed by the in house radiologist without review as a courtesy to ensure prompt reporting. The interpreting r adiologist is fully responsible for the content of the report.
--- NOTE | 2022-12-11 17:50 | EKG ---
Test Date: 2022-12-10 Test Time: 23:50:45 Neon Sign Installer: JANETT MEASUREMENT RESULTS: Intervals: Rate: 107 TX: 142 QRSD: 68 QT: 316 QTc: 421 [place]: P: 40 TX: 142 QRS: 48 T: 56 INTERPRETIVE STATEMENTS: Sinus tachycardia Otherwise normal ECG Compared to ECG 02/12/2019 18:21:32 Sinus rhythm no longer present Electronically Signed On 12-11-22 17:48:53 CDT by Tramaine Stephens
== END 2022-12-11 02:42 | disposition home or self-care (01) ==
LOC: ER 22:57
DX: F41.0 Panic disorder [episodic paroxysmal anxiety] (principal); F41.9 Anxiety disorder, unspecified; I10 Essential (primary) hypertension; Z88.8 Allergy status to other drugs, medicaments and biological substances
CPT/HCPCS: 93005; 85025; 81001; 80048; 36415; 83735; 84703; 85610; 85379; 84484; 80307; 70450; 71275; 71045; 96374; 99284; Q9967; J7030